=== PATIENT | male | born 1960 | race Caucasian/White ===

== ENCOUNTER → 2019-04-15 10:14 | Day surgery (SDC) | payer BC ==
[~2019-04-15 10:14] MED LIST: Acetaminophen TAB* 325 MG ONE; Acetaminophen TAB* 325 MG PO PRN; Adenosine* 3 MG/ML VIAL ONE; Heparin 2 UNITS/ML IVPREMIX* 2,000 UNIT/1,000 ML BAG IV ONE; Heparin(*) 1000 UNIT/ML 10 ML VIAL CATH LAB IV ONE; Ibuprofen TAB* 400 MG PO ONE; Iohexol 350 (CONTRAST) 200 ML MDV IV ONE; Lidocaine 1% INJ* 10 MG/ML 30 ML SDV ONE; Midazolam* 1 MG/ML 5 ML VIAL (5 MG) ONE; NS 0.9% 1000 ML** 1,000 ML IV SCH; Ondansetron INJ* 2 MG/ML VIAL IV ONE; Ondansetron INJ* 2 MG/ML VIAL ONE; fentaNYL* 50 MCG/ML 2 ML VIAL (100 MCG VIAL) IV SLOW PU PRN; fentaNYL* 50 MCG/ML 2 ML VIAL (100 MCG VIAL) ONE; nitroGLYCERIN DRIP* 25,000 MCG/250 ML BTL ONE
[2019-04-15 15:48] VITALS: BP 108/66
--- NOTE | 2019-04-16 00:20 | CATH ---
CC: Dr. Hooks; Dr. Moreira; Leighann Sylvester NP * CATH REPORT: DATE OF PROCEDURE: 04/15/19 - [facility] CATH PRIMARY CARE PHYSICIAN: Dr. Hooks. BOX CAR CHECKER: Dr. Moreira and Leighann Sylvester NP PROCEDURES: Right common femoral artery access, bilateral selective coronary cineangiography, THAKKAR angiography, vein graft angiography, left heart catheterization, Angio-Seal right SFA. HISTORY: A 58-year-old male with bypass grafting in [place] 2008 with a THAKKAR to the LAD and a saphenous vein graft to a marginal for severe left main disease. We have a partial cath report, which does not detail any right coronary disease. He had a subsequent negative stress test when he moved to this area. He has had episodes of atypical, very localized left inframammary chest pain unrelated to activity. He had a stress echo 01/27/19, which was submaximal, he developed ST depression, EF decreased with anteroseptal hypokinesis. He then underwent a Lexiscan on 04/08/19, which revealed anteroapical ischemia, he was referred for coronary angiography. PROCEDURE ACCESS: Right common femoral artery sheath, 6.5 Turkish. DIAGNOSTIC CATHETER: 6FIMA, 6 FL4 6F pigtail. MEDICATIONS: 1. Subcu lidocaine. 2. IV Versed. 3. IV fentanyl. 4. FFR, intracoronary nitroglycerin, RCA 100 mcg followed by adenosine 100, 100 mcg through the TIG catheter using a COMET PressureWire. 5. Heparin 5000 units for FFR. HEMODYNAMICS: AO 113/63. FFR RCA 0.87, 0.85, LV 105/19, no aortic valve gradient on pull back. ANGIOGRAPHY: Right common femoral artery. Sheath entry is in the proximal SFA , distal to the bifurcation. His bifurcation is high, almost top of the femoral head. There was no stenosis. The visualized common femoral and external iliac are normal. THAKKAR: The MIMA is large, smooth, inserts into the mid LAD without insertion stenosis, fills antegrade past the apex, as well as retrograde to its proximal high grade stenosis at the left main. The distal LAD has no stenosis. The retrograde portion of the LAD has diffuse, up to 80% stenosis proximally. There is competitive flow at the left main and circumflex. RCA: The RCA is large, with moderate calcification, has a tubular 50% to 60% proximal stenosis, distally the PDA is moderate with luminal irregularity followed by 2 smaller posterolaterals. Post FFR anatomy is unchanged. Saphenous vein graft to circumflex: It arises on the left side of the aorta. The graft is large, smooth, inserts end to side into a large marginal branch without insertion stenosis, fills the antegrade as well as retrograde. The origin of the marginal has a mild to moderate stenosis. The circumflex continuation supplies 2 small posterolateral branches. The retrograde portion of the circumflex demonstrates high grade distal left main stenosis. There is probably plaque at the distal left main involving the origin of the LAD and circumflex, although not well visualized. Left main: The left main is severely diseased with the distal tapering stenosis up to 80%, ending at the origin of the LAD and circumflex. LV gram: There is localized decreased apical shortening, otherwise normal wall motion, estimated LVEF 60%. CONCLUSION: Three-vessel disease with nonischemic RCA by FFR, patent saphenous vein graft to circumflex OM, patent THAKKAR to the LAD. Normal LV systolic function with essentially normal wall motion. Positive noninvasive imaging studies without anatomic basis for ischemia. Successful Angio-Seal right SFA with high bifurcation. [id number]/[facility] #: [id number] [facility]issa
== END | disposition home or self-care (01) ==
LOC: CHICATH 10:14
PROVIDERS: ATTEND Internal Medicine Cardiovascular Disease
DX: I25.10 Atherosclerotic heart disease of native coronary artery without angina pectoris (principal); I10 Essential (primary) hypertension; R94.39 Abnormal result of other cardiovascular function study; I25.9 Chronic ischemic heart disease, unspecified; Z95.1 Presence of aortocoronary bypass graft; R07.9 Chest pain, unspecified
CPT/HCPCS: 93005; 93459; 99156; 99157; A9270-GY; C1760; C1887; J0153; J1644; J2250; J2405; J3010

== ENCOUNTER 2019-10-14 08:46 | Emergency (ER) | payer BC ==
[2019-10-14 09:06] LABS: ABS Basophils 0.1 10^3/ul (0-0.2); ABS Eosinophils 0.1 10^3/ul (0-0.6); ABS Lymphocytes 1.8 10^3/ul (1.0-4.8); ABS Monocytes 0.8 10^3/ul (0-0.8); ABS Neutrophils 4.5 10^3/ul (1.5-7.7); Eosinophil % 1.8 %; Hematocrit 47 % (42-52); Hemoglobin 15.9 g/dL (14.0-18.0); Lymphocyte % 24.4 %; Mean Corpuscular HGB Conc 33 g/dL (31-36); Mean Corpuscular Hemoglobin 32 pg (27-31); Mean Corpuscular Volume 96 fL (80-94); Mean Platelet Volume 9.2 fL (7.4-10.4); Platelet Count 243 10^3/uL (150-450); Red Blood Count 4.95 10^6 /uL (4.18-5.48); Red Cell Distribution Width 13 % (10-15); White Blood Count 7.3 10^3/uL (3.5-10.8)
[2019-10-14 09:12] LABS: INR 0.96 (0.82-1.09)
--- NOTE | 2019-10-14 09:19 | ED ---
HPI Chest Pain - HPI Summary HPI Summary: The pt is a 59 yr old male presenting to [facility] c/o chest pain beginning last night. He notes that the pain began before he slept and persisted when he woke up in the morning. He describes the chest pain as a twinge and doesnt feel right and rates his current pain severity a 3/10. He notes that he has not felt this type of pain before. No aggravating or alleviating factors noted. He also denies SOB, nausea, vomiting, or dizziness. He has Hx of double bypass 10 years [employer], HTN, DM, and HLD. He occasionally drinks EtOH and is a non-smoker. - History of Current Complaint Chief Complaint: EDChestPainROMI Hx Obtained From: Patient Onset/Duration: Started Hours Ago Time of Onset: 00:00 Timing: Constant Initial Severity: Mild Current Severity: Mild Pain Intensity: 3 Pain Scale Used: 0-10 Numeric Chest Pain Location: Diffuse Aggravating Factor(s): Nothing Alleviating Factor(s): Nothing Associated Signs and Symptoms: Positive: Chest Pain. Negative: Dizziness, Shortness of Breath, Nausea, Vomiting - Allergy/Home Medications Allergies/Adverse Reactions: Allergies Allergy/AdvReac Type Severity Reaction Status Date / Time niacin Allergy Flushing Verified 10/14/19 09:01 Home Medications: Home Medications Metformin HCl 1,000 mg PO BID 10/14/19 [History Confirmed 10/14/19] PMH/Surg Hx/FS Hx/Imm Hx Endocrine/Hematology History: Reports: Hx Diabetes Cardiovascular History: Reports: Hx Angina, Hx Coronary Artery Disease, Hx Hypercholesterolemia, Hx Hypertension Denies: Hx Myocardial Infarction, Hx Pacemaker/ICD, Hx Valvular Heart Disease Respiratory History: Denies: Hx Asthma, Hx Chronic Obstructive Pulmonary Disease (COPD) History: Denies: Hx Chronic Renal Failure, Hx Renal Disease Sensory History: Reports: Hx Contacts or Glasses Denies: Hx Hearing Aid Opthamlomology History: Reports: Hx Contacts or Glasses Psychiatric History: Denies: Hx Panic Disorder - Surgical History Surgery Procedure, Year, and Place: CABG-2010. LT SHOULDER SURGERY. PILONDIAL CYST REMOVAL Infectious Disease History: No Infectious Disease History: Denies: Hx Clostridium Difficile, Hx Hepatitis, Hx Human Immunodeficiency Virus (HIV), Hx of Known/Suspected MRSA, Traveled Outside the [place] in Last 30 Days - Family History Known Family History: Negative: Renal Disease - Social History Alcohol Use: Daily Alcohol Amount: 2 glasses wine/day Substance Use Type: Reports: None Smoking Status (MU): Former Smoker Review of Systems Positive: Chest Pain Negative: Shortness Of Breath Negative: Vomiting, Nausea Neurological: Other - neg - dizziness All Other Systems Reviewed And Are Negative: Yes Physical Exam - Summary Physical Exam Summary: VITAL SIGNS: Reviewed. GENERAL: Patient is a well-developed and nourished male who is lying comfortable in the stretcher. Patient is not in any acute respiratory distress. HEAD AND FACE: No signs of trauma. No ecchymosis, hematomas or skull depressions. No sinus tenderness. EYES: PERRLA, EOMI x 2, No injected conjunctiva, no nystagmus. EARS: Hearing grossly intact. Ear canals and tympanic membranes are within normal limits. MOUTH: Oropharynx within normal limits. NECK: Supple, trachea is midline, no adenopathy, no JVD, no carotid bruit, no c- spine tenderness, neck with full ROM. CHEST: Symmetric, no tenderness at palpation. LUNGS: Clear to auscultation bilaterally. No wheezing or crackles. CVS: Regular rate and rhythm, S1 and S2 present, no murmurs or gallops appreciated. ABDOMEN: Soft, non-tender. No signs of distention. No rebound, no guarding, and no masses palpated. Bowel sounds are normal. EXTREMITIES: FROM in all major joints, no edema, no cyanosis or clubbing. NEURO: Alert and oriented x 3. No acute neurological deficits. Speech is normal and follows commands. SKIN: Dry and warm. Triage Information Reviewed: Yes Vital Signs On Initial Exam: Initial Vitals Temp Pulse Resp BP Pulse Ox 98.0 F 69 18 167/80 100 10/14/19 08:53 10/14/19 08:53 10/14/19 08:53 10/14/19 08:53 10/14/19 08:53 Vital Signs Reviewed: Yes Procedures - Sedation Patient Received Moderate/Deep Sedation with Procedure: No Diagnostics - Vital Signs Vital Signs Temp Pulse Resp BP Pulse Ox 10/14/19 08:53 98.0 F 69 18 167/80 100 - Laboratory Lab Results: Lab Results 10/14/19 Range/Units 09:00 WBC 7.3 (3.5-10.8) 10^3/uL RBC 4.95 (4.18-5.48) 10^6 /uL Hgb 15.9 (14.0-18.0) g/dL Hct 47 (42-52) % MCV 96 H (80-94) fL MCH 32 H (27-31) pg MCHC 33 (31-36) g/dL RDW 13 (10-15) % Plt Count 243 (150-450) 10^3/uL MPV 9.2 (7.4-10.4) fL Neut % (Auto) 61.9 % Lymph % (Auto) 24.4 % Harmon % (Auto) 11.1 % Eos % (Auto) 1.8 % Baso % (Auto) 0.8 % Absolute Neuts (auto) 4.5 (1.5-7.7) 10^3/ul Absolute Lymphs (auto) 1.8 (1.0-4.8) 10^3/ul Absolute Monos (auto) 0.8 (0-0.8) 10^3/ul Absolute Eos (auto) 0.1 (0-0.6) 10^3/ul Absolute Basos (auto) 0.1 (0-0.2) 10^3/ul Absolute Nucleated RBC 0.0 10^3/ul Nucleated RBC % 0.0 Result Diagrams: 10/14/19 09:00 10/14/19 09:00 Lab Statement: Any lab studies that have been ordered have been reviewed, and results considered in the medical decision making process. - Radiology CXR Radiology Interpretation Completed By: Radiologist Summary of Radiographic Findings: IMPRESSION: No active cardiopulmonary disease is noted. ED Physician has reviewed this report. - EKG 0849 Cardiac Rate: NL EKG Rhythm: Sinus Rhythm - 65 bpm Summary of EKG Findings: EKG at 0849 reveals Sinus Rhythm @ 65 bpm. Incomplete RBBB. Similar to previous EKG on 04/15/2019. Chest Pain Course/Dx - Course Assessment/Plan: This patient is a 59-year-old male who presents to the emergency department with chief complaint of chest discomfort. Past medical history: Diabetes mellitus. Hypertension. Dyslipidemia. Coronary artery disease. Bypass surgery. Blood work without any significant abnormality except for glucose 144. Troponin 0.00. EKG is a sinus rhythm without any significant issues. Second troponin 0.00. The patient continues to be asymptomatic. Chest x-ray impression: No evidence for cardiac disease. Heart score is equal to 3. I discussed all the findings and test results with the patient. Patient was instructed to return to the emergency room immediately if any of the symptoms return worsens. Plan of care was discussed with the patient and understands and agrees. All questions were answered at patient satisfaction. There were no further complaints or concerns. Lung exam before discharge: CTA B/L. Good air exchange. No wheezing or crackles heard. CVS: S1 and S2 present. No murmurs appreciated. Patient is alert and oriented x 3. Patient is hemodynamically stable. Patient will be discharged home with follow up PCP in the next 2-3 days - Chest Pain Differential Diagnosis/HQI/PQRI: Acute [place], ACS, Angina, CHF, Chest Wall, GI Disease, Lower Respiratory Infection, Pulmonary Edema - Diagnoses Provider Diagnoses: Atypical chest pain Discharge ED - Sign-Out/Discharge Documenting (check all that apply): Patient Departure - discharge - Discharge Plan Condition: Stable Disposition: HOME Patient Education Materials: Chest Pain (ED) Referrals: Fidel Hooks MD [Primary Care Provider] - 3 Days Additional Instructions: Please follow up with your primary care physician within 3 days and return for any new or worsening symptoms. - Billing Disposition and Condition Condition: STABLE Disposition: Home - Attestation Statements Document Initiated by Betzaida: Yes Documenting Scribe: Greg Olivares Provider For Whom Betzaida is Documenting (Include Credential): Neville Dee MD Scribe Attestation: Greg Prince, scribed for Neville Dee MD on 10/17/19 at 0717. Scribe Documentation Reviewed: Yes Provider Attestation: The documentation as recorded by the Greg laws accurately reflects the service I personally performed and the decisions made by , Neville Dee MD Status of Scribe Document: Viewed
[2019-10-14 09:23] LABS: Albumin 4.5 g/dL (3.2-5.2); BUN/Creatinine Ratio 17.3 (8-20); Calcium 10.3 mg/dL (8.6-10.3); EGFR African American 94.4 (>60); Potassium 4.5 mmol/L (3.5-5.0); Total Protein 7.9 g/dL (6.4-8.9)
[2019-10-14 09:24] LABS: Albumin/Globulin Ratio 1.3 (1-3); Globulin 3.4 g/dL (2-4); Total Bilirubin 0.6 mg/dL (0.2-1.0)
[2019-10-14] MEDS ORDERED: Aspirin 81 mg CHEW TAB* 81 MG TAB.CHEW PO ONE (10:12)
[2019-10-14 12:52] VITALS: BP 134/74
--- OUTSIDE RECORDS SUMMARY | 2019-10-19 14:22 | XMS REPORT | Summary of Care ---
:1960 Author Organization [facility] Address [address] [place] [address] Care Team Providers Name Role Phone Fidel Hooks MD Primary Care Provider Reason for Visit Reason Comments New Patient Pt. referred by Dr. Hooks. Previously seen by [facility] Dr. Flores . Hx of CABG 2008 ([place]). Encounter Details Date Type Department Care Team Description 10/04/2019 Office Visit Balbir Mckeon, Coronary artery disease involving enterprise coronary artery of enterprise heart without angina pectoris ( Primary Dx); Cardiology MD Boris Essential hypertension; [address] [place] [address] [place] [address] [phone] Allergies Active Allergy Reactions Severity Noted Date Comments Niacin Dermatologic Reaction 01/01/2016 flushed documented as of this encounter (statuses as of 10/04/2019) Medications Medication Sig Dispensed Refills Start Date End Date Status albuterol 2.5 mg by 0 Active (PROVENTIL, Inhalation-SV VENTOLIN) (2.5 N route TWICE MG/3ML) 0.083% DAILY. Inhalation Nebu Soln albuterol HFA Take 2 Puffs 0 Active (VENTOLIN) 108 (90 by BASE) MCG/ACT inhalation. Inhalation Aero Soln metoprolol (TOPROL Take 25 mg by 0 Active XL) 25 MG Oral mouth DAILY. TABLET SR 24 HR atorvastatin Take 80 mg by 0 Active (LIPITOR) 80 MG Oral mouth DAILY. Tab aspirin (ECOTRIN) 81 Take 81 mg by 0 Active MG Oral Tab EC mouth DAILY. glipiZIDE (GLUCOTROL Take 2.5 mg 0 Active XL) 2.5 MG Oral by mouth TABLET SR 24 HR DAILY. amLodipine (NORVASC) Take 5 mg by 0 Active 5 MG Oral Tab mouth DAILY. metFORMIN HCL 1000 Take 1,000 mg 0 Active MG Oral Tab by mouth TWICE DAILY. paroxetine (PAXIL) Take 15 mg by 0 Active 10 MG Oral Tab mouth DAILY. nitroglycerin Place 0.4 mg 0 Active (NITROSTAT) 0.4 MG under tongue Sublingual SL Tab EVERY FIVE MINUTES NEEDED for chest pain. ramipril (ALTACE) 5 Take 5 mg by 0 Active MG Oral Cap mouth DAILY. ezetimibe (ZETIA) 10 Take 10 mg by 0 10/04/2019 Discontinued MG Oral Tab mouth DAILY. documented as of this encounter (statuses as of 10/04/2019) Active Problems Problem Noted Date ASHD (arteriosclerotic heart disease) 10/04/2019 Acute bronchitis, unspecified 01/01/2016 Hypercholesterolemia 01/01/2016 Anxiety 01/01/2016 Chronic back pain 01/01/2016 Ventral hernia 01/01/2016 Overview: Without obstruction or gangrene Type II diabetes mellitus, uncontrolled 12/08/2015 Overview: With hyperglycemia Essential hypertension 12/08/2015 documented as of this encounter (statuses as of 10/04/2019) Social History Tobacco Use Types Packs/Day Years Used Date Former Smoker Cigarettes 0.5 7 Quit: 01/22/1990 Smokeless Tobacco: Never Used Comments: quit 25 years ago - only smoked 5 years Alcohol Use Drinks/Week oz/Week Comments Yes 14 Glasses of wine 14.0 occasionally consumes alcohol Sex Assigned at Date Recorded Not on file Job Start Date Occupation Industry Not on file Not on file Not on file Travel History Travel Start Travel End No recent travel history available. documented as of this encounter Last Filed Vital Signs Vital Sign Reading Time Taken Comments Blood Pressure 134/70 10/04/2019 12:57 PM EST Pulse 58 10/04/2019 12:57 PM EST Temperature - - Respiratory Rate - - Oxygen Saturation - - Inhaled Oxygen Concentration - - Weight 113.9 kg (251 lb) 10/04/2019 12:57 PM EST Height 177.8 cm (5' 10") 10/04/2019 12:57 PM EST Body Mass Index 36.01 10/04/2019 12:57 PM EST documented in this encounter Patient Instructions Patient InstructionsMcBoris Lerner MD - 10/04/2019 1:00 PM EST No medication changes today. Work on weight loss, doing more regular exercise, and a low sodium diet. We'll work on getting your lab results from Dr. Hooks; I'll be in touch with you regarding whether we need to change any medications based on those results. Your goal average BP is < 130/80 mmHg. Follow up with me sometime in the spring (~6 months). documented in this encounter Progress Notes Boris Mckeon MD - 10/04/2019 1:00 PM EST [facility] Note Patient: Neville Szymanski Date of : 1960 Date of Service: 10/04/2019 REFERRING PRACTITIONER: Self-Referred PRIMARY CARE PROVIDER: Fidel Hooks Chief Complaint: Chief Complaint Patient presents with New Patient Pt. referred by Dr. Hooks. Previously seen by [facility] Dr. Flores . Hx of CABG 2008 ([place]). History of Present Illness: We had the pleasure of seeing Neville Szymanski today at the [facility] Office. He is a 59-y.o. male with obesity, prior tobacco abuse, HTN, DM2, hyperlipidemia, and CAD s/p CABG 2008 in [place] (THAKKAR-->LAD and SVG-->OM for severe left main disease). He later had a false positive stress echo and false positive nuclear stress test leading to cath [facility] 03/2019 which showed patent grafts and a 50-65% proximal RCA lesion that was not hemodynamically significant by FFR. Mr. Szymanski presents to cardiology clinic today to establish care for his CAD. He was being followed by Dr. Flores until he stopped seeing patients in the office and then he started seeing Dr. Moreira. When he saw Harish he apparently reported some atypical CP that was nonexertional. A stress echo was done , which was suboptimal but showed anteroseptal HK and ST depressions on EKG. He then underwent nuclear stress testing which showed anteroapical ischemia so he had a cath done on 04/15/2019. This showed patent grafts and no other obstructive disease (results below). From a symptom standpoint, he reports feeling fine. 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 He says that his prior angina was CABRERA, and he hasn't experienced anything similar to that in recent years. He's easily able to walk a mile or climb many flights of stairs without any CP or limiting dyspnea. Denies any palpitations, lightheadedness, or syncope. No orthopnea, paroxysmal dyspnea, or lower extremity edema. Notes that he was started on Zetia around the time of his cath but he got myalgias from that so he stopped. BPs at home have been running a bit high when he checks it at the pharmacy but he says that they mostly run in the 120s/ 80s. Patient Active Problem List Diagnosis Type II diabetes mellitus, uncontrolled (HCC) Essential hypertension Acute bronchitis, unspecified Hypercholesterolemia Anxiety Chronic back pain Ventral hernia ASHD (arteriosclerotic heart disease) Past Medical History: Diagnosis Date ASHD (arteriosclerotic heart disease) 10/04/2019 Chickenpox Fracture of left hand Measles Mumps Torn rotator cuff right Past Surgical History: Procedure Laterality Date COLONOSCOPY 2004 10 yr f/u RI ARTHROSCOPY, SHOULDER, DIAGNOSTIC, WITH OR WITHOUT SYNOVIAL BIOPSY ( SEPARATE PROCEDURE) RI CABG, VEIN, TWO 2009 CABG RI REMV PILONIDAL LESION EXTENS x2 Allergies Allergen Reactions Niacin Dermatologic Reaction flushed Current Outpatient Medications Medication Sig albuterol (PROVENTIL, VENTOLIN) (2.5 MG/3ML) 0.083% Inhalation Nebu Soln 2.5 mg by Inhalation-SVN route TWICE DAILY. albuterol HFA (VENTOLIN) 108 (90 BASE) MCG/ACT Inhalation Aero Soln Take 2 Puffs by inhalation. amLodipine (NORVASC) 5 MG Oral Tab Take 5 mg by mouth DAILY. aspirin (ECOTRIN) 81 MG Oral Tab EC Take 81 mg by mouth DAILY. atorvastatin (LIPITOR) 80 MG Oral Tab Take 80 mg by mouth DAILY. glipiZIDE (GLUCOTROL XL) 2.5 MG Oral TABLET SR 24 HR Take 2.5 mg by mouth DAILY. metFORMIN HCL 1000 MG Oral Tab Take 1,000 mg by mouth TWICE DAILY. metoprolol (TOPROL XL) 25 MG Oral TABLET SR 24 HR Take 25 mg by mouth DAILY. nitroglycerin (NITROSTAT) 0.4 MG Sublingual SL Tab Place 0.4 mg under tongue EVERY FIVE MINUTES NEEDED for chest pain. paroxetine (PAXIL) 10 MG Oral Tab Take 15 mg by mouth DAILY. ramipril (ALTACE) 5 MG Oral Cap Take 5 mg by mouth DAILY. No current facility-administered medications for this visit. Family History Problem Relation Age of Onset Cancer Father bone cancer Dementia Mother Heart Disease Other family history Diabetes Other family history Hypertension Other family history High Cholesterol Other family history - hypercholesterolemia Social History Socioeconomic History Marital status: Spouse name: Not on file Number of children: Not on file Years of education: Not on file Highest education level: Not on file Occupational History Not on file Social Needs Financial resource strain: Not on file Food insecurity: Worry: Not on file Inability: Not on file Transportation needs: Medical: Not on file Non-medical: Not on file Tobacco Use Smoking status: Former Smoker Packs/day: 0.50 Years: 7.00 Pack years: 3.50 Types: Cigarettes Last attempt to quit: 01/22/1990 Years since quittin.7 Smokeless tobacco: Never Used Tobacco comment: quit 25 years ago - only smoked 5 years Substance and Sexual Activity Alcohol use: Yes Alcohol/week: 14.0 standard drinks Types: 14 Glasses of wine per week Comment: occasionally consumes alcohol Drug use: No Sexual activity: Not on file Lifestyle Physical activity: Days per week: Not on file Minutes per session: Not on file Stress: Not on file Relationships Social connections: Talks on phone: Not on file Gets together: Not on file Attends confucianist service: Not on file Active member of club or organization: Not on file Attends meetings of clubs or organizations: Not on file Relationship status: Not on file Intimate partner violence: Fear of current or ex partner: Not on file Emotionally abused: Not on file Physically abused: Not on file Forced sexual activity: Not on file Other Topics Concern Not on file Social History Narrative Not on file Nursing Notes: Mansi Chin LPN 10/04/2019 1:20 PM Signed PATIENT: Neville Szymanski : 1960 DATE OF SERVICE: 10/04/2019 CARDIOLOGY AMBULATORY NURSING INTAKE FORM HISTORY COLLECTED BY CLINICAL STAFF: GER REVIEW OF SYSTEMS: GENERAL: Fever: no Weight loss/gain: no Fatigue: no Recent febrile illness: no NEUROLOGIC: Headache: no Syncope: no CVA/TIA: no Change in sensation: no CARDIOVASCULAR: Chest Pain: no Palpitations: no Orthopnea: no Rheumatic Fever (history of): no Edema: no RESPIRATORY: Cough: no Shortness Of Breath: no Hemoptysis: no Underlying Lung Disease: yes - seasonal Asthma (Fall) GASTROINTESTINAL: Nausea: no Vomiting: no Constipation: no Diarrhea: no Melena: no PUD (history of): no Hematemesis: no Gastrointestinal Disorder: no GENITOURINARY: Hematuria: no Urinary Tract Infection(s): no Nocturia: no Prostate Problem(s): no HEMATOLOGIC: Easy bruising: no Bleeding: no MUSCULOSKELETAL/PERIPHERAL VASCULAR SYSTEM: Muscle Pain: no Muscle Cramping: no Stiffness: no Muscle Weakness: no BEHAVIORAL/PSYCH: Depression: no ENDOCRINE: Tremors: no Heat or cold intolerance: no Author: Mansi Chin LPN 10/04/2019 13:04 I have reviewed the ROS obtained by my nurse and concur as detailed above. Physical Exam: Vitals: 10/04/19 1257 BP: 134/70 BP Location: Left arm Patient Position: Sitting Pulse: 58 Weight: 251 lb (113.9 kg) Height: 5' 10" (1.778 m) Body mass index is 36.01 kg/m. General: Obese, alert 59-y.o. male in NAD HEENT: anicteric, MMM, no E/E OP, conj pink Neck: JVP approx 6-7 cm above RA, no carotid bruits or LAD CV: RRR, normal s1/s2, 2/6 BELINDA at USB Pulm: CTA bilaterally without wheezes, rhonchi, or rales. No increased work of breathing. Abd: soft, obese, NT, ND, +BS. No appreciable pulsatile masses or bruits. Ext: no lower extremity edema, no cyanosis, no cords, redness, or warmth, 2+ distal pulses Neuro: no gross focal deficits Skin: no visible lesions Labs: No results found for: NA, K, CL, CO2, GLUCOSE, BUN, CREATININE, CALCIUM, TP, ALBUMIN, AST, ALT, ALK,TBILI, EGFR No results found for: BNP No results found for: CHOL, TRIG, HDL, LDL, LDLHDLRATIO, CHOLHDLRATIO Cardiac Studies: EKG Today (I personally reviewed): Sinus jazmin in high 50s. Borderline LAE. Incomplete RBBB. Left Heart Cath at [facility] 04/15/2019: -Severe LM 80% -80% prox LAD -Moderate RCA 50-60% stenosis with negative FFR (0.87) -Patent THAKKAR to LAD and SVG to OM -Normal LVEF 60% Assessment & Plan: Neville Szymanski is a 59-y.o. male with obesity, prior tobacco abuse, HTN, DM2, hyperlipidemia, and CAD s/p CABG 2008 in [place] (THAKKAR-->LAD and SVG--&gt ;OM for severe left main disease). He later had a false positive stress echo and false positive nuclear stress test leading to cath at [facility] 03/2019 which showed patent grafts and a 50-65% proximal RCA lesion that was not hemodynamically significant by FFR. ICD-9-CM ICD-10-CM 1. Coronary artery disease involving enterprise coronary artery of enterprise heart without angina pectoris 414.01 I25.10 AMBULATORY 12 LEAD EKG (GLOBAL) 2. Essential hypertension 401.9 I10 3. Dyslipidemia 272.4 E78.5 1. Coronary Artery Disease, s/p CABG: Currently asymptomatic from an ischemic standpoint. I recommend the following medical regimen: Antiplatelets: Continue aspirin 81 mg daily. Statin: Cont atorvastatin 80mg daily. I'm going to request recent lab results from Dr. Hooks. If his LDL is > 70 on those labs then I'll recommend changing to Crestor 40mg daily. Apparently pt got myalgias from Zetia in the past, but I might consider re-trying it if we can't get good LDL control with Crestor alone. Beta-sudhakar: Cont Toprol XL. LINDA-inhibitor/ARB: Cont ramipril. Other: I counseled pt on the importance of working on weight loss, a healthy (Mediterranean) diet, and regular exercise. 2. HTN: BP marginally controlled. Goal is < 130/80 mmHg. Will cont current meds for now and he's going to work on lifestyle changes this winter and keep an eye on his BPs. If we're not getting togoal I may increase either his ramipril or amlodipine. 3. Systolic Murmur: Sounds like an aortic sclerosis murmur and I don't see any mention of significant valvular disease on the prior cardiology records that I have available. Will plan to check a resting echo in about a year for further evaluation. Thank you for allowing me to participate in the care of Neville Szymanski. We will plan on f/u in our office in ~6 months or sooner prn. If you have any questions or concerns please feel free to call ouroffice at . Boris Mckeon MD, 10/04/2019, 13:50 documented in this encounter Plan of Treatment Date Type Specialty Care Team Description 04/06/2020 Office Visit Cardiology Boris Mckeon MD [address] [place] [address] [phone] Name Type Priority Associated Diagnoses Order Schedule AMBULATORY 12 LEAD EKG EKG Routine Coronary artery disease Ordered: 2018 (GLOBAL) involving enterprise coronary artery of enterprise heart without angina pectoris Health Maintenance Due Date Last Done Comments Diabetic Eye Exam 1960 HEMOGLOBIN A1C 1960 PNEUMOCOCCAL 0-64 YRS (1 of - 1965 PPSV23) DEPRESSION SCREENING 1971 HIV SCREENING 1974 FOOT EXAM 1977 LIPID DISORDER SCREENING 1977 HEPATITIS C SCREENING 1999 ZOSTER IMMUNIZATION SERIES (1 of 2009 2) INFLUENZA VACCINE (#1) 2019 COLONOSCOPY SCREENING 01/22/2021 01/23/2016 HPV IMMUNIZATION SERIES Aged Out No longer eligible based on patient's age to complete this topic MENINGOCOCCAL VACCINE IMM Aged Out No longer eligible based on patient's age to complete this topic documented as of this encounter Results Not on filedocumented in this encounter Visit Diagnoses Diagnosis Coronary artery disease involving enterprise coronary artery of enterprise heart without angina pectoris - Primary Essential hypertension Unspecified essential hypertension Dyslipidemia Other and unspecified hyperlipidemia documented in this encounter Insurance Payer Benefit Plan / Subscriber ID Effective Dates Phone Address Type Group [employer] xxxxxxxxxxxx 2019-Present [employer] Guarant[employer] Name Account Type Relation to Date of Phone Billing Patient Address Neville Szymanski Personal/Family 1960 [phone] [id number] (Home) [place], [place] [phone] (Work) documented as of this encounter
== END 2019-10-14 12:53 | disposition home or self-care (01) ==
LOC: ED 08:46
DX: R07.89 Other chest pain (principal); I10 Essential (primary) hypertension; E11.9 Type 2 diabetes mellitus without complications; I25.10 Atherosclerotic heart disease of native coronary artery without angina pectoris; E78.00 Pure hypercholesterolemia, unspecified; Z79.84 Long term (current) use of oral hypoglycemic drugs; Z88.8 Allergy status to other drugs, medicaments and biological substances; Z95.1 Presence of aortocoronary bypass graft; Z87.891 Personal history of nicotine dependence
CPT/HCPCS: 36415; 71046; 80053; 84484; 85025; 85610; 93005; 99282; A9270-GY